=== PATIENT | female | born 1965 | race Caucasian/White ===

== ENCOUNTER 2017-12-28 20:00 | Emergency (ER) | payer MEDICAID ==
[2017-12-28] MEDS: KETOROLAC 60 MG INJ IM (23:41)
[2017-12-28] MEDS: DIPHENHYDRAMINE 50 MG INJ IM (23:41)
== END 2017-12-29 00:45 | disposition home or self-care (01) ==
LOC: FTE 20:00
DX: R51 Headache (principal)
CPT/HCPCS: 96372; 99284-25

== ENCOUNTER 2018-06-04 22:13 | Emergency (ER) | payer MEDICAID ==
[2018-06-04] MEDS: HYDROCODONE/APAP (5/325) TAB PO (22:49)
== END 2018-06-05 00:50 | disposition home or self-care (01) ==
LOC: FTE 06-05 00:50
DX: S80.02XA Contusion of left knee, initial encounter (principal); S60.212A Contusion of left wrist, initial encounter; S60.222A Contusion of left hand, initial encounter; W01.0XXA Fall on same level from slipping, tripping and stumbling without subsequent striking against object, initial encounter; Y92.9 Unspecified place or not applicable
CPT/HCPCS: 73110; 73110-LT; 73130-LT; 73562; 99284

== ENCOUNTER 2018-07-03 22:37 | Emergency (ER) | payer MEDICAID ==
[2018-07-04 01:36] LABS: ADD MAN DIFF? NO
[2018-07-04 01:38] LABS: WHITE BLOOD COUNT 15.2 10^3/ul (4.8-10.8)
[2018-07-04 01:38] LABS: BASOPHIL # 0.1 10^3/ul (0.0-0.1); BASOPHILS % 0.5 % (0.0-2.0); EOSINOPHILS # 0.7 10^3/ul (0.0-0.5); EOSINOPHILS % 4.3 % (0.0-7.0); HEMATOCRIT 39.1 % (37.0-47.0); HEMOGLOBIN 12.8 g/dl (12.0-16.0); LYMPHOCYTES # 4.4 10^3/ul (0.8-2.9); LYMPHOCYTES % 28.9 % (15.0-51.0); MEAN CORPUSCULAR HEMOGLOBIN 27.9 pg (29.0-33.0); MEAN CORPUSCULAR HGB CONC 32.7 g/dl (32.0-37.0); MEAN CORPUSCULAR VOLUME 85.4 fl (82.0-101.0); MEAN PLATELET VOLUME 10.1 fl (7.4-10.4); MONOCYTE # 0.9 10^3/ul (0.3-0.9); NEUTROPHIL # 9.1 10^3/ul (1.6-7.5); NEUTROPHILS % 59.9 % (39.0-77.0); PLATELET COUNT 353 10^3/UL (140-415); RED BLOOD COUNT 4.58 10^6/ul (4.20-5.40); RED CELL DISTRIBUTION WIDTH 13.6 % (11.5-14.5)
[2018-07-04] MEDS: ONDANSETRON 4 MG INJ IV (01:42)
[2018-07-04] MEDS: morphine 4 MG/ML VIAL IV (01:42)
[2018-07-04] MEDS: hydrALAzine 20 MG INJ IV (01:49)
[2018-07-04 01:56] LABS: ALANINE AMINOTRANSFERASE 27 IU/L (13-69); ALBUMIN 4.5 g/dl (3.3-4.9); ALBUMIN/GLOBULIN RATIO 1.07; ALKALINE PHOSPHATASE 155 IU/L (42-121); ANION GAP 15 (5-13); ASPARTATE AMINO TRANSFERASE 25 IU/L (15-46); BLOOD UREA NITROGEN 22 mg/dl (7-20); CALCIUM 9.9 mg/dl (8.4-10.2); CARBON DIOXIDE 30 mmol/L (21-31); CHLORIDE 97 mmol/L (97-110); Estimated GFR > 60 mL/min (>60); GLUCOSE 113 mg/dl (70-220); POTASSIUM 4.5 mmol/L (3.5-5.1); SODIUM 142 mmol/L (135-144); TOTAL PROTEIN 8.7 g/dl (6.1-8.1)
[2018-07-04 01:58] LABS: INR 0.89; PROTIME 12.1 Sec (11.9-14.9); PT RATIO 0.9
[2018-07-04 01:59] LABS: PARTIAL THROMBOPLASTIN TIME 28.9 Sec (23.0-35.0)
[2018-07-04 02:07] LABS: TROPONIN-I < 0.012 ng/ml (0.000-0.120)
[2018-07-04 04:25] LABS: ADD UMIC YES; UR ASCORBIC ACID NEGATIVE (NEGATIVE); UR BACTERIA FEW /HPF (NONE SEEN); UR BILIRUBIN (Dip) NEGATIVE (NEGATIVE); UR BLOOD (Dip) 1+ mg/dL (NEGATIVE); UR BUDDING YEAST FEW /HPF (NONE SEEN); UR CLARITY CLOUDY (CLEAR); UR COLOR YELLOW (YELLOW); UR GLUCOSE (Dip) NEGATIVE (NEGATIVE); UR KETONES (Dip) NEGATIVE (NEGATIVE); UR LEUKOCYTE ESTERASE (Dip) 3+ Leu/ul (NEGATIVE); UR NITRITE (Dip) NEGATIVE (NEGATIVE); UR RBC 21 /HPF (0-5); UR SPECIFIC GRAVITY (Dip) 1.016 (1.003-1.030); UR SQUAMOUS EPITHELIAL CELL FEW /HPF (FEW); UR TOTAL PROTEIN (Dip) NEGATIVE (NEGATIVE); UR UROBILINOGEN (Dip) NEGATIVE (NEGATIVE); UR WBC 161 /HPF (0-5)
[2018-07-04] MEDS: CEFTRIAXONE 1 GM/50 ML (PMX) 50 ML IVPB (05:12)
== END 2018-07-04 05:44 | disposition home or self-care (01) ==
LOC: FTE 22:37
DX: R51 Headache (principal); R42 Dizziness and giddiness; N39.0 Urinary tract infection, site not specified; R07.9 Chest pain, unspecified
CPT/HCPCS: 70450; 71046; 80053; 81001; 84484; 85025; 85610; 85730; 87400; 93005; 96374; 96375; 99285-25

== ENCOUNTER 2018-09-11 22:47 | Emergency (ER) | payer MEDICAID ==
[2018-09-12] MEDS: HYDROCODONE/APAP (5/325) TAB PO (03:18)
== END 2018-09-12 05:40 | disposition home or self-care (01) ==
LOC: FTE 22:47
DX: N64.4 Mastodynia (principal)
CPT/HCPCS: 76642; 99284-25